=== PATIENT | male | born 1995 | race African-American/Black ===

== ENCOUNTER 2016-11-01 17:27 | Emergency (ER) | payer OTHER ==
[2016-11-01 18:02] VITALS: BP 118/56; PULSE 65; RESP 20; TEMP 98.8
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
== END 2016-11-01 18:47 | disposition home or self-care (01) ==
LOC: EC 17:27
DX: S29.012A Strain of muscle and tendon of back wall of thorax, initial encounter (principal); R40.2412 Glasgow coma scale score 13-15, at arrival to emergency department; V49.50XA Passenger injured in collision with unspecified motor vehicles in traffic accident, initial encounter; Y92.410 Unspecified street and highway as the place of occurrence of the external cause
CPT/HCPCS: 99283